=== PATIENT | female | born 1960 | race Caucasian/White ===

== ENCOUNTER 2020-02-21 20:06 | Inpatient (IN) ==
[~2020-02-21 20:06] MED LIST: *HR* Etomidate 20 MG/10 ML AMPUL IVP ONE; *HR* Rocuronium Bromide 100 MG/10 ML VIAL IVP ONE
[2020-02-21] MEDS ORDERED: *HR* FentaNYL (PF) 100 MCG/2 ML VIAL ONE (20:11)
[2020-02-21] MEDS ORDERED: *HR* FentaNYL (PF) 100 MCG/2 ML VIAL IVP ONE ×2 (20:15)
[2020-02-21] MEDS ORDERED: methylPREDNISolone 125 MG/2 ML VIAL ONE (20:18)
[2020-02-21] MEDS ORDERED: methylPREDNISolone 125 MG/2 ML VIAL IVP ONE (20:22)
[2020-02-21] MEDS ORDERED: Isovue-370 500 ML BOTTLE IVP ONE ×2 (20:24)
[2020-02-21] MEDS ORDERED: Ipratropium/Albuterol Neb 3 ML ONE (20:24)
[2020-02-21] MEDS ORDERED: cefTRIAXone 1,000 MG in Water for inj. (sterile) 10 ML IVP ONE (20:25)
[2020-02-21] MEDS ORDERED: *HR* FentaNYL (PF) 1,000 MCG/20 ML VIAL ONE (20:30)
[2020-02-21] MEDS ORDERED: *HR* EPINEPHrine 100 MCG/10 ML SYRINGE IVP ONE (20:31)
[2020-02-21 20:43] LABS: Bilirubin,Urine Negative (Negative); Blood,Urine Trace-intact (Negative); Clarity,Urine Clear (Clear); Color,Urine Yellow (Yellow); Glucose,Urine (UA) 250 mg/dL (Normal); Ketones,Urine Negative (Negative); Leukocyte Esterase,Urine Negative (Negative); Nitrite,Urine Positive (Negative); Protein,Urine 100 mg/dL (Neg-Trace); Urobilinogen,Urine Normal (Normal)
[2020-02-21 20:45] LABS: Amphetamine Screen,Urine Negative ng/mL (Cutoff=1000); Barbiturate Screen,Urine Negative ng/mL (Cutoff=200); Benzodiazepines Screen,Urine Negative ng/mL (Cutoff=200); Cannabinoid Screen,Urine Negative ng/mL (Cutoff = 50); Cocaine Screen,Urine Negative ng/mL (Cutoff= 300); Opiate Screen,Urine Negative ng/mL (Cutoff=300); Phencyclidine Screen,Urine Negative ng/mL (Cutoff=25)
[2020-02-21] MEDS: FentaNYL (PF) 1,000 MCG/100 ML IV.SOLN IVC SCH (20:48)
[2020-02-21 20:52] LABS: Alanine Aminotransferase 91 Units/L (7-52); Albumin/Globulin Ratio 1.3 (1.1-2.2); Alkaline Phosphatase 114 Units/L (34-104); Aspartate Amino Transferase 138 Units/L (13-39); BUN/Creatinine Ratio 17 (6-26); Bilirubin,Direct 0.1 mg/dL (0.0-0.2); Bilirubin,Indirect 0.3 mg/dL (0.0-1.0); Bilirubin,Total 0.4 mg/dL (0.3-1.0); Blood Urea Nitrogen 23 mg/dL (8-23); Calcium 8.7 mg/dL (8.6-10.3); Carbon Dioxide 21 mEq/L (23-29); Chloride 100 mEq/L (98-107); Creatine Kinase 76 Units/L (30-223); Ethanol < 10 mg/dL (Less than 10); Glucose 406 mg/dL (70-105); Lipase 79 Units/L (11-82); Magnesium 2.4 mg/dL (1.6-2.6); Osmolality,Calculated 303 (280-300); Sodium 136 mEq/L (136-145); Troponin I 0.06 ng/mL (< 0.04); eGFR For African Americans 48 (> 60); eGFR For Non-African Americans 40 (> 60)
[2020-02-21 20:54] LABS: Basophils % 0.8 %; Red Cell Distribution Width 12.4 % (11.5-14.5)
[2020-02-21 20:54] LABS: Bacteria,Urine Few per hpf (None-Few); Mucus,Urine Few per lpf (None-Few); RBC,Urine 0-3 per hpf (0-3); Squamous Epithelial Cell,Urine Few per hpf (None-Few); WBC,Urine 0-3 per hpf (0-3)
[2020-02-21 20:56] LABS: Basophils # 0.2 K/mcL (0.0-0.2); Eosinophils # 0.6 K/mcL (0.0-0.6); Eosinophils % 2.3 %; Hematocrit 48.9 % (35.3-44.9); Hemoglobin 14.6 g/dL (11.5-15.4); Immature Granulocytes % 2.5 % (0-4); Lymphocytes # 8.5 K/mcL (0.6-4.6); Lymphocytes % 33.8 %; Mean Corpuscular HGB Conc 29.9 g/dL (31.6-35.5); Mean Corpuscular Hemoglobin 30.7 pg (28.0-33.3); Mean Corpuscular Volume 102.7 fL (83.0-100.0); Mean Platelet Volume 11.4 fL (9.4-12.4); Monocytes # 1.5 K/mcL (0.0-1.3); Platelet Count 253 K/mcL (140-400); Red Blood Count 4.76 M/mcL (3.82-4.97); Segmented Neutrophils % 54.6 %; White Blood Count 25.2 K/mcL (4.3-11.1)
[2020-02-21 21:00] LABS: Thyroid Stimulating Hormone 1.498 mcIU/mL (0.340-5.600)
[2020-02-21] MEDS ORDERED: Lactulose Oral Soln 20 GM/30 ML UDC PO ONE (21:00)
[2020-02-21] MEDS ORDERED: 0.9 % Sodium Chloride 1,000 ML IVC ONE ×2 (21:00→21:51)
[2020-02-21 21:19] LABS: ABG Base Excess -8 mEq/L (-2 to 3); ABG HCO3 24 mEq/L (21-27); ABG Oxygen Saturation 99 % (95-98); ABG PCO2 78 mmHg (35-45); ABG PH 7.09 pH Units (7.32-7.45); ABG PO2 212 mmHg (85-104); ABG TCO2 26 mEq/L (20-26); Blood Gas Modality ASSIST CONTROL; Blood Gas VT 500 cc
[2020-02-21 21:31] LABS: Neutrophils # 13.8 K/mcL (1.6-8.9)
[2020-02-21 21:32] LABS: Platelet Estimate Normal (Normal); Reactive Lymphocytes Present (Not Present)
[2020-02-21] MEDS ORDERED: Ipratropium/Albuterol Neb 3 ML IH ONE (21:39)
[2020-02-21] MEDS ORDERED: *HR* Heparin 5,000 UNIT/ML VIAL IVP PRN ×2 (21:50)
[2020-02-21] MEDS ORDERED: *HR* Heparin 5,000 UNIT/ML VIAL IVP ONE (21:50)
[2020-02-21] MEDS ORDERED: Azithromycin 500 MG in 0.9 % Sodium Chloride 250 ML IVPB ONE (21:51)
[2020-02-21 21:55] LABS: VBG HCO3 20 mEq/L (21-27); VBG PCO2 56 mmHg (41-51); VBG PH 7.17 pH Units (7.32-7.42); VBG PO2 177 mmHg (25-50)
[2020-02-21 22:18] LABS: Hematocrit 47.5 % (35.3-44.9); Hemoglobin 14.4 g/dL (11.5-15.4); Mean Corpuscular HGB Conc 30.3 g/dL (31.6-35.5); Mean Corpuscular Hemoglobin 29.8 pg (28.0-33.3); Mean Corpuscular Volume 98.3 fL (83.0-100.0); Platelet Count 238 K/mcL (140-400); Red Blood Count 4.83 M/mcL (3.82-4.97); Red Cell Distribution Width 12.4 % (11.5-14.5)
[2020-02-21 22:21] LABS: White Blood Count 48.3 K/mcL (4.3-11.1)
[2020-02-21 22:26] LABS: Heparin anti-factor XA UFH < 0.04 IU/mL (0.30-0.70)
[2020-02-21 22:27] LABS: Prothrombin Time 12.1 Seconds (9.4-12.1)
[2020-02-21 22:38] LABS: ABG Base Excess -5 mEq/L (-2 to 3); ABG HCO3 26 mEq/L (21-27); ABG Oxygen Saturation 99 % (95-98); ABG PCO2 78 mmHg (35-45); ABG PH 7.14 pH Units (7.32-7.45); ABG PO2 163 mmHg (85-104); ABG TCO2 29 mEq/L (20-26); Blood Gas VT 500 cc
[2020-02-21] MEDS: Heparin 25,000UNIT/250ML 1/2NS 25,000 UNIT/250 ML IV.SOLN IVC SCH (22:39)
[2020-02-21 23:34] LABS: Adenovirus Not Detected (Not Detect); Bordetella Pertussis Not Detected (Not Detect); Chlamydophila pneumoniae Not Detected (Not Detect); Coronavirus 229E Not Detected (Not Detect); Coronavirus HKU1 Not Detected (Not Detect); Coronavirus NL63 Not Detected (Not Detect); Coronavirus OC43 Not Detected (Not Detect); Human Metapneumovirus Not Detected (Not Detect); Human Rhinovirus/Enterovirus DETECTED (Not Detect); Influenza A Subtype 2009 H1 Not Detected (Not Detect); Influenza B Not Detected (Not Detect); Mycoplasma pneumoniae Not Detected (Not Detect); Parainfluenza Virus 1 Not Detected (Not Detect); Parainfluenza Virus 2 Not Detected (Not Detect); Parainfluenza Virus 3 Not Detected (Not Detect); Parainfluenza Virus 4 Not Detected (Not Detect); Respiratory Syncytial Virus Not Detected (Not Detect); SARS-CoV-2 Not Detected (Not Detect)
[2020-02-22 00:01] LABS: ABG Base Excess -5 mEq/L (-2 to 3); ABG HCO3 26 mEq/L (21-27); ABG Oxygen Saturation 100 % (95-98); ABG PCO2 75 mmHg (35-45); ABG PH 7.15 pH Units (7.32-7.45); ABG PO2 298 mmHg (85-104); ABG TCO2 29 mEq/L (20-26); Blood Gas Modality ASSIST CONTROL; Blood Gas VT 500 cc
[2020-02-22] MEDS ORDERED: Vancomycin 1,500 MG/265 ML IV.SOLN IVPB ONE (00:01)
[2020-02-22] MEDS ORDERED: Naloxone 0.4 MG/ML INJ IVP PRN (00:40)
[2020-02-22] MEDS ORDERED: Albuterol 2.5 MG/3 ML NEBULIZER IH PRN (01:28)
[2020-02-22] MEDS ORDERED: Perflutren Lipid Microsphere 1.3 ML in 0.9 % Sodium Chloride 8.7 ML IVP PRN (02:05)
[2020-02-22 02:06] LABS: ABG Base Excess -4 mEq/L (-2 to 3); ABG HCO3 24 mEq/L (21-27); ABG Oxygen Saturation 100 % (95-98); ABG PCO2 54 mmHg (35-45); ABG PH 7.25 pH Units (7.32-7.45); ABG PO2 248 mmHg (85-104); ABG TCO2 25 mEq/L (20-26); Blood Gas VT 500 cc
[2020-02-22] MEDS: Artificial Tears SOLN 15 ML BOTTLE BOTH EYES SCH ×5 (03:48→20:18)
[2020-02-22] MEDS: Ipratropium/Albuterol Neb 3 ML IH SCH ×4 (04:04→23:45)
[2020-02-22 04:21] LABS: Basophils % 0.2 %; Hematocrit 47.4 % (35.3-44.9); Hemoglobin 14.1 g/dL (11.5-15.4); Immature Granulocytes % 1.1 % (0-4); Lymphocytes # 0.8 K/mcL (0.6-4.6); Lymphocytes % 3.8 %; Mean Corpuscular HGB Conc 29.7 g/dL (31.6-35.5); Mean Corpuscular Hemoglobin 29.3 pg (28.0-33.3); Mean Corpuscular Volume 98.5 fL (83.0-100.0); Mean Platelet Volume 11.4 fL (9.4-12.4); Monocytes % 4.4 %; Platelet Count 196 K/mcL (140-400); Red Blood Count 4.81 M/mcL (3.82-4.97); Red Cell Distribution Width 12.6 % (11.5-14.5); Segmented Neutrophils % 90.5 %
[2020-02-22 04:22] LABS: Neutrophils # 19.7 K/mcL (1.6-8.9); White Blood Count 21.8 K/mcL (4.3-11.1)
[2020-02-22 04:31] LABS: Albumin 3.8 g/dL (3.5-5.7); Albumin/Globulin Ratio 1.4 (1.1-2.2); Bilirubin,Total 0.5 mg/dL (0.3-1.0); Calcium 8.3 mg/dL (8.6-10.3); Globulin 2.7 g/dL (2.4-3.5); Potassium 4.5 mEq/L (3.5-5.1); Total Protein 6.5 g/dL (6.4-8.9)
[2020-02-22 05:03] LABS: ABG Base Excess -2 mEq/L (-2 to 3); ABG HCO3 25 mEq/L (21-27); ABG Oxygen Saturation 98 % (95-98); ABG PCO2 48 mmHg (35-45); ABG PH 7.32 pH Units (7.32-7.45); ABG PO2 109 mmHg (85-104); ABG TCO2 26 mEq/L (20-26); Blood Gas VT 500 cc
[2020-02-22] MEDS: methylPREDNISolone 125 MG/2 ML VIAL IM SCH ×3 (05:53→18:03)
[2020-02-22] MEDS ORDERED: 0.9 % Sodium Chloride 1,000 ML IVC SCH (06:30)
[2020-02-22] MEDS: Chlorhexidine Rinse 15 ML MOUTHWASH MM SCH ×2 (07:46→20:28)
[2020-02-22] MEDS: Pantoprazole 40 MG VIAL IVP SCH (07:47)
[2020-02-22] MEDS: FentaNYL (PF) 1,000 MCG/100 ML IV.SOLN IVC SCH (07:52)
[2020-02-22] MEDS: Cefepime HCl 2,000 MG in 0.9 % Sodium Chloride Mini Bag 100 ML IVPB SCH (12:45)
[2020-02-22] MEDS: Metoprolol XL (24 HR) Succ 25 MG TAB.ER.24H PO SCH (18:03)
[2020-02-22] MEDS: *HR* OxyCODONE/APAP 5/325 TABLET PO PRN (18:39)
[2020-02-22] MEDS ORDERED: cefTRIAXone 2,000 MG in Water for inj. (sterile) 20 ML IVP SCH (21:00)
[2020-02-22] MEDS ORDERED: Azithromycin 500 MG in 0.9 % Sodium Chloride 250 ML IVPB ONE (21:00)
[2020-02-22] MEDS: Heparin 25,000UNIT/250ML 1/2NS 25,000 UNIT/250 ML IV.SOLN IVC SCH (22:31)
[2020-02-22] MEDS ORDERED: Cefepime HCl 2,000 MG in 0.9 % Sodium Chloride Mini Bag 100 ML IVPB ONE (23:30)
[2020-02-23] MEDS: Ipratropium/Albuterol Neb 3 ML IH SCH ×4 (03:52→21:55)
[2020-02-23] MEDS: Artificial Tears SOLN 15 ML BOTTLE BOTH EYES SCH ×6 (03:59→20:13)
[2020-02-23] MEDS: *HR* OxyCODONE/APAP 5/325 TABLET PO PRN ×2 (04:13→09:21)
[2020-02-23 04:32] LABS: Basophils % 0.1 %; Hematocrit 37.2 % (35.3-44.9); Immature Granulocytes % 0.5 % (0-4); Lymphocytes # 1.2 K/mcL (0.6-4.6); Lymphocytes % 6.6 %; Mean Corpuscular HGB Conc 31.5 g/dL (31.6-35.5); Mean Corpuscular Volume 95.4 fL (83.0-100.0); Mean Platelet Volume 11.6 fL (9.4-12.4); Monocytes # 0.5 K/mcL (0.0-1.3); Monocytes % 2.8 %; Neutrophils # 15.8 K/mcL (1.6-8.9); Platelet Count 171 K/mcL (140-400); White Blood Count 17.5 K/mcL (4.3-11.1)
[2020-02-23 04:33] LABS: Hemoglobin 11.7 g/dL (11.5-15.4)
[2020-02-23 04:40] LABS: Albumin 2.8 g/dL (3.5-5.7); Albumin/Globulin Ratio 1.4 (1.1-2.2); Bilirubin,Direct 0.1 mg/dL (0.0-0.2); Bilirubin,Indirect 0.3 mg/dL (0.0-1.0); Bilirubin,Total 0.4 mg/dL (0.3-1.0); Total Protein 4.8 g/dL (6.4-8.9)
[2020-02-23 05:27] LABS: Basophils % 0.1 %; Hematocrit 40.7 % (35.3-44.9); Hemoglobin 12.9 g/dL (11.5-15.4); Immature Granulocytes % 0.7 % (0-4); Lymphocytes # 1.1 K/mcL (0.6-4.6); Lymphocytes % 5.7 %; Mean Corpuscular HGB Conc 31.7 g/dL (31.6-35.5); Mean Corpuscular Hemoglobin 29.8 pg (28.0-33.3); Mean Platelet Volume 10.7 fL (9.4-12.4); Monocytes # 0.4 K/mcL (0.0-1.3); Monocytes % 2.2 %; Neutrophils # 16.7 K/mcL (1.6-8.9); Platelet Count 176 K/mcL (140-400); Red Blood Count 4.33 M/mcL (3.82-4.97); Red Cell Distribution Width 12.9 % (11.5-14.5); Segmented Neutrophils % 91.3 %; White Blood Count 18.3 K/mcL (4.3-11.1)
[2020-02-23] MEDS: methylPREDNISolone 125 MG/2 ML VIAL IM SCH ×2 (05:33)
[2020-02-23 05:46] LABS: Alanine Aminotransferase 256 Units/L (7-52); Albumin 3.9 g/dL (3.5-5.7); Albumin/Globulin Ratio 1.4 (1.1-2.2); Alkaline Phosphatase 97 Units/L (34-104); Aspartate Amino Transferase 115 Units/L (13-39); BUN/Creatinine Ratio 31 (6-26); Bilirubin,Direct 0.2 mg/dL (0.0-0.2); Bilirubin,Indirect 0.3 mg/dL (0.0-1.0); Bilirubin,Total 0.5 mg/dL (0.3-1.0); Blood Urea Nitrogen 28 mg/dL (8-23); Calcium 8.4 mg/dL (8.6-10.3); Carbon Dioxide 22 mEq/L (23-29); Chloride 106 mEq/L (98-107); Globulin 2.8 g/dL (2.4-3.5); Glucose 150 mg/dL (70-105); Osmolality,Calculated 294 (280-300); Sodium 138 mEq/L (136-145); Total Protein 6.7 g/dL (6.4-8.9); eGFR For African Americans > 60 (> 60); eGFR For Non-African Americans > 60 (> 60)
[2020-02-23] MEDS: Pantoprazole 40 MG VIAL IVP SCH (09:19)
[2020-02-23] MEDS: Chlorhexidine Rinse 15 ML MOUTHWASH MM SCH ×2 (09:19→20:13)
[2020-02-23] MEDS: Aspirin Enteric Coated 81 MG Tablet PO SCH (09:19)
[2020-02-23] MEDS: Metoprolol XL (24 HR) Succ 25 MG TAB.ER.24H PO SCH (09:19)
[2020-02-23] MEDS ORDERED: Metoprolol XL (24 HR) Succ 25 MG TAB.ER.24H PO ONE (11:06)
[2020-02-23] MEDS: Cefepime HCl 2,000 MG in 0.9 % Sodium Chloride Mini Bag 100 ML IVPB SCH ×3 (11:37→22:04)
[2020-02-23] MEDS ORDERED: Furosemide 20 MG/2 ML VIAL IVP ONE ×2 (12:00→13:47)
[2020-02-23] MEDS ORDERED: *HR* Metoprolol 5 MG/5 ML VIAL IVP ONE ×3 (12:04→12:10)
[2020-02-23] MEDS: Morphine Sulfate 2 MG/ML SYRINGE IVP PRN ×2 (12:20→18:32)
[2020-02-23] MEDS ORDERED: methylPREDNISolone 125 MG/2 ML VIAL IVP ONE (12:30)
[2020-02-23 12:37] LABS: ABG Base Excess -5 mEq/L (-2 to 3); ABG HCO3 26 mEq/L (21-27); ABG Oxygen Saturation 89 % (95-98); ABG PCO2 70 mmHg (35-45); ABG PH 7.17 pH Units (7.32-7.45); ABG PO2 74 mmHg (85-104); ABG TCO2 28 mEq/L (20-26)
[2020-02-23] MEDS: Dexmedetomidine HCl 400 MCG/100 ML MLS IVC SCH (14:34)
[2020-02-23 14:46] LABS: ABG Base Excess 0 mEq/L (-2 to 3); ABG HCO3 27 mEq/L (21-27); ABG Oxygen Saturation 96 % (95-98); ABG PCO2 52 mmHg (35-45); ABG PH 7.32 pH Units (7.32-7.45); ABG PO2 91 mmHg (85-104); ABG TCO2 28 mEq/L (20-26)
[2020-02-23] MEDS ORDERED: Ondansetron 4 MG/2 ML VIAL IVP PRN (15:39)
[2020-02-23 16:19] LABS: ABG Base Excess 2 mEq/L (-2 to 3); ABG HCO3 27 mEq/L (21-27); ABG Oxygen Saturation 100 % (95-98); ABG PCO2 47 mmHg (35-45); ABG PH 7.38 pH Units (7.32-7.45); ABG PO2 227 mmHg (85-104); ABG TCO2 29 mEq/L (20-26)
[2020-02-23] MEDS: MethylPREDNISolone 40 MG/ML VIAL IVP SCH (18:32)
[2020-02-23] MEDS: Heparin 25,000UNIT/250ML 1/2NS 25,000 UNIT/250 ML IV.SOLN IVC SCH (18:34)
[2020-02-23] MEDS: amLODIPine 5 MG TABLET PO SCH (22:04)
[2020-02-24] MEDS: Artificial Tears SOLN 15 ML BOTTLE BOTH EYES SCH ×8 (00:08→23:53)
[2020-02-24] MEDS: Dexmedetomidine HCl 400 MCG/100 ML MLS IVC SCH ×2 (02:12→16:11)
[2020-02-24] MEDS: Ipratropium/Albuterol Neb 3 ML IH SCH ×4 (03:47→21:47)
[2020-02-24] MEDS: MethylPREDNISolone 40 MG/ML VIAL IVP SCH ×2 (05:14→17:30)
[2020-02-24 05:48] LABS: Basophils % 0.1 %; Hematocrit 38.6 % (35.3-44.9); Hemoglobin 11.9 g/dL (11.5-15.4); Immature Granulocytes % 0.5 % (0-4); Lymphocytes # 1.2 K/mcL (0.6-4.6); Lymphocytes % 7.1 %; Mean Corpuscular HGB Conc 30.8 g/dL (31.6-35.5); Mean Corpuscular Hemoglobin 29.3 pg (28.0-33.3); Mean Corpuscular Volume 95.1 fL (83.0-100.0); Mean Platelet Volume 11.6 fL (9.4-12.4); Monocytes # 0.7 K/mcL (0.0-1.3); Neutrophils # 14.9 K/mcL (1.6-8.9); Platelet Count 194 K/mcL (140-400); Red Blood Count 4.06 M/mcL (3.82-4.97); Red Cell Distribution Width 12.8 % (11.5-14.5); Segmented Neutrophils % 88.3 %; White Blood Count 16.9 K/mcL (4.3-11.1)
[2020-02-24 06:06] LABS: BUN/Creatinine Ratio 45 (6-26); Blood Urea Nitrogen 39 mg/dL (8-23); Calcium 8.6 mg/dL (8.6-10.3); Carbon Dioxide 27 mEq/L (23-29); Chloride 103 mEq/L (98-107); Glucose 130 mg/dL (70-105); Osmolality,Calculated 297 (280-300); Potassium 4.1 mEq/L (3.5-5.1); Sodium 138 mEq/L (136-145); eGFR For African Americans > 60 (> 60); eGFR For Non-African Americans > 60 (> 60)
[2020-02-24] MEDS: amLODIPine 5 MG TABLET PO SCH (09:12)
[2020-02-24] MEDS: Aspirin Enteric Coated 81 MG Tablet PO SCH (09:12)
[2020-02-24] MEDS: Chlorhexidine Rinse 15 ML MOUTHWASH MM SCH ×2 (09:13→20:32)
[2020-02-24] MEDS: Metoprolol XL (24 HR) Succ 50 MG TAB.ER.24H PO SCH (09:13)
[2020-02-24] MEDS: Furosemide 20 MG/2 ML VIAL IVP SCH ×2 (10:45→17:30)
[2020-02-24] MEDS: Cefepime HCl 2,000 MG in 0.9 % Sodium Chloride Mini Bag 100 ML IVPB SCH ×2 (10:45→22:32)
[2020-02-24] MEDS: *HR* OxyCODONE/APAP 5/325 TABLET PO PRN (17:34)
[2020-02-24] MEDS: Loratadine 10 MG TABLET PO SCH (18:00)
[2020-02-25] MEDS: Ipratropium/Albuterol Neb 3 ML IH SCH ×4 (03:24→21:25)
[2020-02-25] MEDS: MethylPREDNISolone 40 MG/ML VIAL IVP SCH (05:14)
[2020-02-25 06:29] LABS: Basophils % 0.1 %; Hematocrit 39.4 % (35.3-44.9); Hemoglobin 12.8 g/dL (11.5-15.4); Lymphocytes # 1.7 K/mcL (0.6-4.6); Lymphocytes % 8.2 %; Mean Corpuscular HGB Conc 32.5 g/dL (31.6-35.5); Mean Corpuscular Hemoglobin 30.1 pg (28.0-33.3); Mean Corpuscular Volume 92.7 fL (83.0-100.0); Mean Platelet Volume 11.4 fL (9.4-12.4); Monocytes # 1.1 K/mcL (0.0-1.3); Monocytes % 5.3 %; Neutrophils # 17.3 K/mcL (1.6-8.9); Platelet Count 215 K/mcL (140-400); Red Blood Count 4.25 M/mcL (3.82-4.97); Segmented Neutrophils % 85.4 %; White Blood Count 20.2 K/mcL (4.3-11.1)
[2020-02-25 06:50] LABS: Alanine Aminotransferase 121 Units/L (7-52); Albumin 3.9 g/dL (3.5-5.7); Albumin/Globulin Ratio 1.4 (1.1-2.2); Alkaline Phosphatase 80 Units/L (34-104); Aspartate Amino Transferase 29 Units/L (13-39); BUN/Creatinine Ratio 41 (6-26); Bilirubin,Total 0.6 mg/dL (0.3-1.0); Blood Urea Nitrogen 39 mg/dL (8-23); Carbon Dioxide 28 mEq/L (23-29); Chloride 99 mEq/L (98-107); Globulin 2.8 g/dL (2.4-3.5); Glucose 123 mg/dL (70-105); Magnesium 2.3 mg/dL (1.6-2.6); Osmolality,Calculated 293 (280-300); Potassium 3.9 mEq/L (3.5-5.1); Sodium 136 mEq/L (136-145); Total Protein 6.7 g/dL (6.4-8.9); eGFR For African Americans > 60 (> 60); eGFR For Non-African Americans > 60 (> 60)
[2020-02-25] MEDS: Artificial Tears SOLN 15 ML BOTTLE BOTH EYES SCH ×4 (08:23→19:11)
[2020-02-25] MEDS: Furosemide 20 MG/2 ML VIAL IVP SCH (08:28)
[2020-02-25] MEDS: Chlorhexidine Rinse 15 ML MOUTHWASH MM SCH (08:29)
[2020-02-25] MEDS: Metoprolol XL (24 HR) Succ 50 MG TAB.ER.24H PO SCH (08:29)
[2020-02-25] MEDS: amLODIPine 5 MG TABLET PO SCH (08:29)
[2020-02-25] MEDS: Loratadine 10 MG TABLET PO SCH (08:29)
[2020-02-25] MEDS: Aspirin Enteric Coated 81 MG Tablet PO SCH (08:29)
[2020-02-25] MEDS ORDERED: amLODIPine 5 MG TABLET PO ONE (11:07)
[2020-02-25] MEDS ORDERED: HydrOXYzine SYP 10 MG/5 ML UDC PO PRN (12:16)
[2020-02-25] MEDS: *HR* OxyCODONE/APAP 5/325 TABLET PO PRN ×2 (15:46→21:37)
[2020-02-25] MEDS: Cefuroxime PO 500 MG TABLET PO SCH (18:59)
[2020-02-26 00:59] LABS: Basophils # 0.1 K/mcL (0.0-0.2); Basophils % 0.3 %; Eosinophils % 0.1 %; Hematocrit 40.3 % (35.3-44.9); Hemoglobin 12.9 g/dL (11.5-15.4); Immature Granulocytes % 1.2 % (0-4); Lymphocytes # 3.9 K/mcL (0.6-4.6); Lymphocytes % 16.6 %; Mean Corpuscular Hemoglobin 29.5 pg (28.0-33.3); Mean Corpuscular Volume 92.2 fL (83.0-100.0); Monocytes % 8.5 %; Neutrophils # 17.3 K/mcL (1.6-8.9); Platelet Count 233 K/mcL (140-400); Red Blood Count 4.37 M/mcL (3.82-4.97); Red Cell Distribution Width 12.9 % (11.5-14.5); Segmented Neutrophils % 73.3 %; White Blood Count 23.5 K/mcL (4.3-11.1)
[2020-02-26 01:24] LABS: BUN/Creatinine Ratio 36 (6-26); Blood Urea Nitrogen 37 mg/dL (8-23); Calcium 8.6 mg/dL (8.6-10.3); Carbon Dioxide 29 mEq/L (23-29); Chloride 100 mEq/L (98-107); Glucose 94 mg/dL (70-105); Osmolality,Calculated 292 (280-300); Potassium 3.7 mEq/L (3.5-5.1); Sodium 137 mEq/L (136-145); eGFR For African Americans > 60 (> 60); eGFR For Non-African Americans 55 (> 60)
[2020-02-26] MEDS: Artificial Tears SOLN 15 ML BOTTLE BOTH EYES SCH ×2 (02:58→05:26)
[2020-02-26] MEDS: Ipratropium/Albuterol Neb 3 ML IH SCH (03:25)
[2020-02-26] MEDS: Cefuroxime PO 500 MG TABLET PO SCH (05:26)
[2020-02-26] MEDS: *HR* OxyCODONE/APAP 5/325 TABLET PO PRN (05:28)
[2020-02-26 05:32] VITALS: BP 167/68
[2020-02-26] MEDS ORDERED: *HR* OxyCODONE/APAP 5/325 TABLET PO PRN (07:29)
[2020-02-26] MEDS ORDERED: HydrOXYzine SYP 10 MG/5 ML UDC PO PRN (07:29)
[2020-02-26] MEDS ORDERED: Albuterol 2.5 MG/3 ML NEBULIZER IH PRN (07:29)
[2020-02-26] MEDS ORDERED: Artificial Tears SOLN 15 ML BOTTLE BOTH EYES SCH (08:00)
[2020-02-26] MEDS ORDERED: Metoprolol XL (24 HR) Succ 50 MG TAB.ER.24H PO SCH (09:00)
[2020-02-26] MEDS ORDERED: Loratadine 10 MG TABLET PO SCH (09:00)
[2020-02-26] MEDS ORDERED: predniSONE 20 MG TABLET PO SCH ×2 (09:00)
[2020-02-26] MEDS ORDERED: amLODIPine 5 MG TABLET PO SCH ×2 (09:00)
[2020-02-26] MEDS ORDERED: Furosemide 40 MG TABLET PO SCH ×2 (09:00)
[2020-02-26] MEDS ORDERED: Aspirin Enteric Coated 81 MG Tablet PO SCH (09:00)
[2020-02-26] MEDS ORDERED: Ipratropium/Albuterol Neb 3 ML IH SCH (11:00)
[2020-02-26] MEDS ORDERED: Cefuroxime PO 500 MG TABLET PO SCH (18:00)
== END 2020-02-26 14:12 | disposition home or self-care (01) | DRG 871 ==
LOC: EMEROOARM 20:06 → ICNU 20:06 → SUATTDRO 02-22 00:44 → 3NENU 02-23 12:02 → ICNU 02-23 12:44 → CDU 02-25 22:26
PROVIDERS: ADMIT Internal Medicine; ATTEND Internal Medicine